=== PATIENT | male | born 1985 | race Two or more races ===

== ENCOUNTER 2017-03-29 14:17 | Emergency (ER) | payer SELFPAY ==
[2017-03-29] MEDS ORDERED: ACETAMINOPHEN 325 MG TABLET PO ONE (15:14)
--- NOTE | 2017-03-29 15:47 | RADIOLOGY REPORT (SQ) ---
EXAM DESCRIPTION: HAND RIGHT 3 VIEWS COMPLETED DATE/TIME: 03/29/2017 3:24 pm REASON FOR STUDY: Pain s/p injury COMPARISON: None. EXAM PARAMETERS: NUMBER OF VIEWS: Three views. TECHNIQUE: AP, lateral and oblique radiographic images acquired of the right hand. LIMITATIONS: None. FINDINGS: MINERALIZATION: Normal. BONES: Fracture of the 5th metacarpal distal to midshaft with about 30 of medial and dorsal angulati on JOINTS: No effusions. SOFT TISSUES: No soft tissue swelling. No foreign body. OTHER: No other significant finding. IMPRESSION: Fracture of the 5th metacarpal. TECHNICAL DOCUMENTATION: JOB ID: [id number] [employer]- All Rights Reserved
--- NOTE | 2017-03-29 16:19 | ER Document Report ---
HPI - HPI Patient complains to provider of: right hand pain and swelling Onset: Just prior to arrival - punched a table with his right hand Onset/Duration: Sudden Quality of pain: Achy, Throbbing Pain Level: 4 Associated Symptoms: Other - sensation intact, painful with ROM Exacerbated by: Movement Relieved by: Remaining still Similar symptoms previously: No Recently seen / treated by doctor: Yes - evaluated [facility] - REPRODUCTIVE Reproductive: DENIES: : - DERM Skin Color: Normal Past Medical History - General Information source: Patient - Social History Smoking Status: Unknown if Ever Smoked Family History: Reviewed & Not Pertinent Patient has suicidal ideation: No Patient has homicidal ideation: No Pulmonary Medical History: Reports: Hx Asthma Renal/ Medical History: Denies: Hx Peritoneal Dialysis - Immunizations Hx Diphtheria, Pertussis, Tetanus Vaccination: Yes Vertical Provider Document - CONSTITUTIONAL Agree With Documented VS: Yes Exam Limitations: No Limitations General Appearance: WD/WN, No Apparent Distress - INFECTION CONTROL TRAVEL OUTSIDE OF THE [place] IN LAST 30 DAYS: No - RESPIRATORY O2 Sat by Pulse Oximetry: 96 - MUSCULOSKELETAL/EXTREMETIES Musculoskeletal/Extremeties: MAEW, FROM, Tender - over shaft of 5th metacarpal, Edema, Eccymosis - over 5th metacarpal Notes: palpable deformity midshaft of 5th metacarpal - NEURO Level of Consciousness: Awake, Alert, Appropriate Motor/Sensory: No Motor Deficit, No Sensory Deficit - DERM Integumentary: Warm, Dry, No Rash. negative: Laceration Course - Re-evaluation Re-evalutation: 03/29/17 16:15 31-year-old male presents emergency department with right hand pain after punching a table. Right upper extremity of neurovascularly intact x-ray shows evidence of metacarpal midshaft fracture with dorsal angulation medially. Patient placed in ulnar gutter splint [facility]. - Vital Signs Vital signs: Temp Pulse Resp BP Pulse Ox 98.1 F 81 16 123/77 96 03/29/17 14:25 03/29/17 14:25 03/29/17 14:25 03/29/17 14:25 03/29/17 14:25 - Diagnostic Test Radiology reviewed: Image reviewed, Reports reviewed Discharge - Discharge Clinical Impression: Boxer's fracture Qualifiers: Encounter type: initial encounter Fracture type: closed Qualified Code(s): S62.309A - Unspecified fracture of unspecified metacarpal bone, initial encounter for closed fracture Condition: Good Disposition: HOME, SELF-CARE Instructions: Fractured Fifth Metacarpal ([facility]), Splint Precautions ([facility]) Additional Instructions: [facility] Please follow-up with an orthopedic surgeon for evaluation within the next 1-2 weeks. Prescriptions: Oxycodone HCl/Acetaminophen [Percocet 5-325 mg Tablet] 1 - 2 tab PO Q4H PRN #15 tablet PRN Reason: Referrals: CHUY MEZA MD [Primary Care Provider] - 03/31/17 VALENTINA HOPKINS DO [ACTIVE STAFF] - Follow up as needed
[2017-03-29 17:07] VITALS: BP 127/83
== END 2017-03-29 17:05 | disposition home or self-care (01) ==
LOC: ER 14:17
DX: S62.309A Unspecified fracture of unspecified metacarpal bone, initial encounter for closed fracture (principal); R22.31 Localized swelling, mass and lump, right upper limb; W22.09XA Striking against other stationary object, initial encounter
CPT/HCPCS: 99283

== ENCOUNTER 2018-07-09 05:23 | Observation (INO) | payer MEDICAID ==
[2018-07-09] MEDS ORDERED: DIPH/PERTUSS(ACELL)/TETANUS VAC/PF 0.5 ML SYR (>=10YO) IM ONE (07:09)
--- NOTE | 2018-07-09 07:15 | ER Document Report ---
ED General - General Chief Complaint: Laceration Stated Complaint: ANKLE LAC Time Seen by Provider: 07/09/18 06:52 TRAVEL OUTSIDE OF THE [place] IN LAST 30 DAYS: No - HPI Notes: Patient is a 32-year-old male that presents to the emergency department for chief complaint of right foot injury. Patient was brought in by EMS after kicking a glass door. He has been drinking alcohol tonight. He states he suffers from "intermittent explosive disorder" which causes him to have frequent outbursts. He states that he kicked the door out of anger. He is having pain in his right lower extremity. Pain is sharp and worse with movement. HPI is limited because of patient's current alcohol intoxication Past Medical History: Negative Past Surgical History: Negative Social History: Occasional tobacco, occasional marijuana, occasional alcohol Family History: Reviewed and noncontributory for presenting illness Allergies: Reviewed, see documented allergy list. REVIEW OF SYSTEMS: CONSTITUTIONAL : No fever No chills No diaphoresis No recent illness EENT: No vision changes No congestion No sore throat CARDIOVASCULAR: No chest pain No palpitations RESPIRATORY: No shortness of breath No cough No difficulty breathing GASTROINTESTINAL: No abdominal pain No nausea No vomiting No diarrhea GENITOURINARY: No dysuria No hematuria No difficulty urinating MUSCULOSKELETAL: No back pain No leg pain No arm pain SKIN: No rashes Right leg and foot laceration LYMPHATIC: No swollen, enlarged glands. NEUROLOGICAL: No lightheadedness No headache No weakness No paresthesias PSYCHIATRIC: No anxiety No depression PHYSICAL EXAMINATION: Vital signs reviewed, nursing noted reviewed. GENERAL: Well-appearing, well-nourished and in no acute distress. HEAD: Atraumatic, normocephalic. EYES: Eyes appear normal, extraocular movements intact, sclera anicteric, conjunctiva are normal. ENT: nares patent, oropharynx clear without exudates. Moist mucous membranes. NECK: Normal range of motion, supple without lymphadenopathy LUNGS: Breath sounds clear to auscultation bilaterally and equal. No wheezes rales or rhonchi. HEART: Regular rate and rhythm without murmurs ABDOMEN: Soft, nontender, normoactive bowel sounds. No rebound, guarding, or rigidity. No masses appreciated. EXTREMITIES: Nontender, good range of motion, no pitting or edema. NEUROLOGICAL: No focal neurological deficits. Moves all extremities spontaneously Motor and sensory grossly intact on exam. PSYCH: Normal mood, normal affect. SKIN: Warm, Dry, normal turgor. Plantar right foot linear laceration over the lateral arch, partial thickness, no active bleeding, no foreign material seen. Medial right lower extremity just proximal to the ankle has multiple macerated linear lacerations, no active bleeding. - Related Data Allergies/Adverse Reactions: No Known Allergies Allergy (Verified 03/29/17 14:25) Past Medical History - Social History Smoking Status: Former Smoker Chew tobacco use (# tins/day): No Frequency of alcohol use: Occasional Drug Abuse: None Family History: Reviewed & Not Pertinent Patient has suicidal ideation: No Patient has homicidal ideation: No Pulmonary Medical History: Reports: Hx Asthma Renal/ Medical History: Denies: Hx Peritoneal Dialysis - Immunizations Hx Diphtheria, Pertussis, Tetanus Vaccination: Yes Review of Systems - Review of Systems Notes: Dictated Physical Exam - Vital signs Vitals: Temp Pulse Resp BP Pulse Ox 98.3 F 83 16 111/80 96 07/09/18 05:28 07/09/18 05:28 07/09/18 05:28 07/09/18 05:28 07/09/18 05:28 - Notes Notes: Dictated Course - Re-evaluation Re-evalutation: 07/09/18 07:18 Vitals reviewed. Nursing notes reviewed. Patient's tetanus was updated. X- rays obtained to evaluate for foreign body. 07/09/18 09:03 Patient moved his right ankle and had what appeared to be possibly arterial bleeding that squirted a few feet from bedside. X-ray shows multiple glass fragments. Patient's care was discussed with Dr. Modi for surgical repair and wound exploration. Dr. Modi currently at bedside assessing the patient. Patient is now n.p.o. Foot X-Ray 07/09/18 07:09 IMPRESSION: NEGATIVE STUDY OF THE RIGHT FOOT. NO RADIOGRAPHIC EVIDENCE OF ACUTE INJURY. Tibia/Fibula X-Ray 07/09/18 07:09 IMPRESSION: DISTAL SOFT TISSUE INJURY WITH NUMEROUS RADIOPAQUE FOREIGN OBJECTS. NO BONY FINDINGS. 07/09/18 09:16 Patient will be admitted to Dr. Modi and taken to the operating room for surgical wound exploration and repair. - Vital Signs Vital signs: Temp Pulse Resp BP Pulse Ox 98.3 F 83 16 111/80 96 07/09/18 05:28 07/09/18 05:28 07/09/18 05:28 07/09/18 05:28 07/09/18 05:28 Discharge - Discharge Clinical Impression: Laceration of right foot Qualifiers: Encounter type: initial encounter Qualified Code(s): S91.311A - Laceration without foreign body, right foot, initial encounter Laceration of right lower leg Qualifiers: Encounter type: initial encounter Qualified Code(s): S81.811A - Laceration without foreign body, right lower leg, initial encounter Alcohol intoxication Qualifiers: Complication of substance-induced condition: uncomplicated Qualified Code(s): F10.920 - Alcohol use, unspecified with intoxication, uncomplicated Condition: Stable Disposition: ADMITTED OBSERVATION Admitting Provider: Surgicalist Unit Admitted: Surgical Floor Additional Instructions: Please return to the emergency department if you have any worsening, or concern of your symptoms. Please return to the emergency department if you develop chest pain, difficulty breathing, severe abdominal pain, or ongoing vomiting. Please follow-up with your primary care physician in 2-3 days and any other recommended physicians. If prescribed, take all medications as directed. If you have any questions or concerns do not hesitate to return the emergency department for evaluation. []
[2018-07-09] MEDS ORDERED: LIDOCAINE 1%/EPINEPHRINE INJ 20 ML VIAL INJ ONE (07:19)
--- NOTE | 2018-07-09 08:37 | RADIOLOGY REPORT (SQ) ---
EXAM DESCRIPTION: TIBIA FIBULA RIGHT COMPLETED DATE/TIME: 07/09/2018 7:56 am REASON FOR STUDY: foreign body COMPARISON: None. NUMBER OF VIEWS: Two views. TECHNIQUE: Two radiographic images acquired of the right tibia and fibula to include the knee and an kle in at least one projection. LIMITATIONS: None. FINDINGS: MINERALIZATION: Normal. BONES: No acute fracture or dislocation. No worrisome bone lesions. SOFT TISSUES: Distal soft tissue injury with numerous radiopaque foreign objects. OTHER: No other significant finding. IMPRESSION: DISTAL SOFT TISSUE INJURY WITH NUMEROUS RADIOPAQUE FOREIGN OBJECTS. NO BONY FINDINGS. TECHNICAL DOCUMENTATION: JOB ID: [id number] [employer]- All Rights Reserved Reading location - IP/workstation name: [email or web address]
--- NOTE | 2018-07-09 08:38 | RADIOLOGY REPORT (SQ) ---
EXAM DESCRIPTION: FOOT RIGHT COMPLETE COMPLETED DATE/TIME: 07/09/2018 7:56 am REASON FOR STUDY: foreign body COMPARISON: New NUMBER OF VIEWS: Three views. TECHNIQUE: AP, lateral and oblique radiographic images acquired of the right foot. LIMITATIONS: None. FINDINGS: MINERALIZATION: Normal. BONES: No acute fracture or dislocation. No worrisome bone lesions. JOINTS: No effusions. SOFT TISSUES: No soft tissue swelling. No foreign body. OTHER: Radiopaque foreign objects in the soft tissues of the distal calf, reported in the separate x- ray of the tibia and fibula. IMPRESSION: NEGATIVE STUDY OF THE RIGHT FOOT. NO RADIOGRAPHIC EVIDENCE OF ACUTE INJURY. TECHNICAL DOCUMENTATION: JOB ID: [id number] [employer]- All Rights Reserved Reading location - IP/workstation name: [email or web address]
[2018-07-09] MEDS ORDERED: NORMAL SALINE 1000 ML 1,000 ML IV ONE (09:00)
[2018-07-09] MEDS ORDERED: CEFAZOLIN 1 GM/D5W RTU 1 GM/50 ML RTUPB IV PRN (09:20)
[2018-07-09] MEDS ORDERED: DEXTROSE 5%-LACTATED RINGERS 1,000 ML IV PRN (09:20)
[2018-07-09] MEDS ORDERED: RINGERS SOLUTION,LACTATED 1,000 ML IV PRN (09:58)
--- NOTE | 2018-07-09 09:58 | PDOC H&P ---
History of Present Illness Admission Date/PCP: CHUY MEZA MD Patient complains of: Multiple lacerations right leg History of Present Illness: JONH DE LA CRUZ JR is a 32 year old male Br[facility] sustaining multiple lacerations to his right lower extremity, medial aspect after consciously kicking a glass door. The glass door shattered, patient had some bleeding at the scene, had a dressing applied, and was seen in the emergency department. Hemodynamically stable. He was obviously intoxicated but not combative. He had an x-ray of his right lower extremity which showed multiple retained foreign body consistent with glass fragments in his right leg. An initial attempt was made to perform foreign body removal at bedside in the emergency department but this was unsuccessful. Surgery was consulted and mentation were made to perform the service in the operating room. Past Medical History Past Medical History: Intermittent explosive disorder Medical History: None Pulmonary Medical History: Reports: Asthma Past Surgical History Past Surgical History: Reports: None Social History Information Source: Patient Smoking Status: Former Smoker Frequency of Alcohol Use: Heavy Hx Recreational Drug Use: No Family History Family History: Reviewed & Not Pertinent Parental Family History Reviewed: Yes Children Family History Reviewed: Yes Sibling(s) Family History Reviewed.: Yes Medication/Allergy Home Medications: Polymyxin B Sulf/Trimethoprim [Polytrim Eye Drops] 10 ml OP Q4 #1 bottle Oxycodone HCl/Acetaminophen [Percocet 5-325 mg Tablet] 1 - 2 tab PO Q4H PRN #15 tablet 03/29/17 Allergies/Adverse Reactions: No Known Allergies Allergy (Verified 03/29/17 14:25) Review of Systems Constitutional: PRESENT: as per HPI Eyes: ABSENT: visual disturbances Ears: ABSENT: hearing changes Respiratory: ABSENT: cough, hemoptysis Gastrointestinal: ABSENT: abdominal pain, constipation, diarrhea, hematemesis, hematochezia, nausea, vomiting Genitourinary: ABSENT: dysuria, hematuria Neurological: ABSENT: abnormal gait, abnormal speech, confusion, dizziness, focal weakness, syncope Hematologic/Lymphatic: ABSENT: easy bleeding, easy bruising Physical Exam Vital Signs: Temp Pulse Resp BP Pulse Ox 98.3 F 72 16 112/63 100 07/09/18 05:28 07/09/18 07:40 07/09/18 07:40 07/09/18 07:40 07/09/18 07:40 Intake & Output 07/08/18 07/09/18 07/10/18 06:59 06:59 06:59 Weight 64 kg General appearance: PRESENT: other - Reeks of alcohol Head exam: PRESENT: atraumatic Eye exam: PRESENT: EOMI Ear exam: PRESENT: normal external ear exam Neck exam: PRESENT: full ROM Respiratory exam: PRESENT: chest wall tenderness, clear to auscultation mamie Cardiovascular exam: PRESENT: RRR Pulses: PRESENT: normal carotid pulses, normal radial pulses, normal femoral pulses, normal dorsalis pedis pul GI/Abdominal exam: PRESENT: soft Rectal exam: PRESENT: deferred Musculoskeletal exam: PRESENT: other - Right lower extremity examined. Dressing removed. Multiple 4-5 small linear lacerations to the medial aspect of the right lower leg above the malleolus; eating no hematoma. Range of motion of the leg, ankle, with flexion, extension, inversion and eversion appears relatively preserved. Unable to reliably assess sensory function Neurological exam: PRESENT: awake, oriented to person, oriented to place, oriented to time, oriented to situation Psychiatric exam: PRESENT: flat affect Results Impressions: Foot X-Ray 07/09/18 07:09 IMPRESSION: NEGATIVE STUDY OF THE RIGHT FOOT. NO RADIOGRAPHIC EVIDENCE OF ACUTE INJURY. Tibia/Fibula X-Ray 07/09/18 07:09 IMPRESSION: DISTAL SOFT TISSUE INJURY WITH NUMEROUS RADIOPAQUE FOREIGN OBJECTS. NO BONY FINDINGS. Assessment & Plan - Diagnosis (1) Foreign body of right lower leg Is this a current diagnosis for this admission?: Yes Plan: Impression: Self-inflicted traumatic laceration to the right lower extremity multiple small glass foreign body in the soft tissue. Recommendations: 1. Keep n.p.o., IV fluids, tetanus booster 2. Take patient to the operating room for right lower extremity washout, foreign body removal and wound closure. (2) Alcohol intoxication Qualifiers: Complication of substance-induced condition: uncomplicated Qualified Code(s ): F10.920 - Alcohol use, unspecified with intoxication, uncomplicated Is this a current diagnosis for this admission?: Yes (3) Laceration of right foot Qualifiers: Encounter type: initial encounter Qualified Code(s): S91.311A - Laceration without foreign body, right foot, initial encounter Is this a current diagnosis for this admission?: Yes - Time Time Spent: 30 to 50 Minutes Critical Time spent with patient: 15-24 minutes Medications reviewed and adjusted accordingly: Yes Anticipated discharge: Home - Inpatient Certification Based on my medical assessment, after consideration of the patient's comorbidities, presenting symptoms, or acuity I expect that the services needed warrant INPATIENT care.: Yes I certify that my determination is in accordance with my understanding of Medicare's requirements for reasonable and necessary INPATIENT services [42 CFR 412.3e].: Yes Medical Necessity: Need For IV Fluids, Need for Pain Control, Need for IV Antibiotics, Need for Surgery
[2018-07-09 10:15] LABS: ABSOLUTE BASOPHILS # (AUTO) 0.1 10^3/uL (0.0-0.2); ABSOLUTE EOSINOPHILS # (AUTO) 0.2 10^3/uL (0.0-0.6); ABSOLUTE LYMPHOCYTES (AUTO) 1.9 10^3/uL (0.5-4.7); ABSOLUTE MONOCYTES (AUTO) 0.7 10^3/uL (0.1-1.4); ABSOLUTE NEUT (AUTO) 6.6 10^3/uL (1.7-8.2); BASOPHILS % (AUTO) 0.8 % (0-2); EOSINOPHILS % (AUTO) 1.8 % (0-6); HEMATOCRIT 49.1 % (37.9-51.0); HEMOGLOBIN 17.3 g/dL (13.5-17.0); LYMPHOCYTES % (AUTO) 20.4 % (13-45); MEAN CORPUSCULAR HEMOGLOBIN 31.5 pg (27.0-33.4); MEAN CORPUSCULAR HGB CONC 35.1 g/dL (32.0-36.0); MEAN CORPUSCULAR VOLUME 90 fl (80-97); MONOCYTES % (AUTO) 7.1 % (3-13); PLATELET COUNT 367 10^3/uL (150-450); RED BLOOD COUNT 5.48 10^6/uL (4.35-5.55); RED CELL DISTRIBUTION WIDTH 13.1 % (11.5-14.0); SEGMENTED NEUTROPHILS % (AUTO) 69.9 % (42-78); TOTAL CELLS COUNTED % (AUTO) 100 %; WHITE BLOOD COUNT 9.4 10^3/uL (4.0-10.5)
[2018-07-09] MEDS ORDERED: HYDROMORPHONE HCL INJ/PF 2 MG/ML AMPULE ONE (10:20)
[2018-07-09] MEDS ORDERED: PROPOFOL INJ 200 MG/20 ML VIAL IV ONE (10:21)
[2018-07-09] MEDS ORDERED: FENTANYL CITRATE INJ/PF 100 MCG/2 ML AMPUL ONE (10:21)
[2018-07-09] MEDS ORDERED: ONDANSETRON HCL INJ/PF 4 MG/2 ML SDV ONE (10:21)
[2018-07-09] MEDS ORDERED: MIDAZOLAM 2 MG/2 ML INJ ONE (10:21)
[2018-07-09] MEDS ORDERED: BUPIVACAINE HCL 0.5 % INJ/PF 30 ML SDV ONE (10:31)
[2018-07-09] MEDS ORDERED: LIDOCAINE 0.5% INJ-PF (5 MG/ML) 50 ML SDV ONE (10:31)
[2018-07-09 10:32] LABS: ANION GAP 12 (5-19); BLOOD UREA NITROGEN 8 mg/dL (7-20); CALCIUM 10.1 mg/dL (8.4-10.2); CARBON DIOXIDE 26 mmol/L (22-30); CHLORIDE 104 mmol/L (98-107); GLUCOSE 86 mg/dL (75-110); POTASSIUM 4.5 mmol/L (3.6-5.0); SODIUM 142.2 mmol/L (137-145)
[2018-07-09] MEDS ORDERED: METOCLOPRAMIDE HCL INJ/PF 10 MG/2 ML SDV ONE (10:36)
[2018-07-09] MEDS ORDERED: IPRATROPIUM/ALBUTEROL 0.5-2.5 MG/3 ML AMPUL NEB ONE (10:36)
[2018-07-09] MEDS ORDERED: FAMOTIDINE INJ/PF 20 MG/2 ML SDV IV ONE (10:37)
--- NOTE | 2018-07-09 11:52 | Operative Report ---
Operative Report DATE OF SURGERY: 07/09/18 PREOPERATIVE DIAGNOSIS: 1. Dramatic lacerations to the right lower extremity with foreign body consistent with glass. 2. Intermittent explosive disorder ( F63.8, ICD-10) POSTOPERATIVE DIAGNOSIS: Same with traumatic laceration of the right greater saphenous vein, right greater saphenous nerve. OPERATION: 1. Right lower extremity wound exploration, control of hemorrhage from right greater saphenous vein and associated artery. 2. Movable for multiple foreign bodies consistent with glass fragments. 3. Primary closure of multiple lacerations right lower extremity. 4. Interpretation of intraoperative fluoroscopy SURGEON: JANNET KAHN ANESTHESIA: GA TISSUE REMOVED OR ALTERED: Foreign body right lower extremity; fragments of nonviable skin and subcutaneous tissue COMPLICATIONS: None ESTIMATED BLOOD LOSS: Minimal INTRAOPERATIVE FINDINGS: See below PROCEDURE: The patient was taken to the preop holding her to the main operating room where general anesthesia was induced. Right leg was exposed, elevated on a pediatric pillow, and right leg prepped and draped in sterile fashion after clipping hair around the traumatic laceration to the right lower extremity above the right medial malleolus. Of note there was now active bleeding from the. Her most laceration requiring direct pressure for control Immediate plan and timeout discussed. We called our attention immediately to the superiormost laceration which is approximately 3-1/2 cm in length on a diagonal. Several glass fragments immediately fell out of this wound. I immediately notified the transected right greater saphenous vein, small associated artery, and the completely transected right greater saphenous nerve. I extended the laceration longitudinally divided some devitalized tissue along the cephalad skin flap, and gain control of the proximal dissected and of the respective vein and artery as well as the transected sensory greater saphenous nerve. All 4 components were now ligated with 3-0 Vicryl suture. The rationale for performing this maneuver was the insignificant role that these arteries, vein and nerve play in the viability foot. The nerve is strictly sensory. Of note, the patient had a bounding posterior tibial and a bounding dorsalis tibial pulse on examination preop and during the operation. We brought in fluoroscopy, and identified multiple retained glass fragments approximately 5. We used a combination of hemostat, and saline irrigation to expel the remaining fragments. After debridement of the retained foreign bodies , a conclusion image of the right lower extremity both in the AP and lateral projection showed no evidence of retention of retained foreign body. We felt that debridement was complete I cleaned up all 3 incisions. The superiormost at 3-1/2 cm, the inferior incision which was a skive type injury at 2 cm and inferior lateral laceration approximately 2 cm. Nonviable skin edges were sharply debrided with a #10 blade. All 3 lacerations were closed with running vertical mattress or interrupted vertical mattress sutures using 4-0 Ethilon suture. Of note the 2 cm inferior laceration was only approximated due to the loss of dermis centrally. Will be permitted to granulate in by secondary intention At this point felt the operation was complete. Sponge and needle counts are correct. Wound dressed with Xeroform, 4 x 4's, Kerlix dressing. Patient procedure well, extubated, taken recovery in stable condition.
[2018-07-09] MEDS ORDERED: MEPERIDINE HCL/PF INJ 25 MG/1 ML DISP.SYRIN IV PRN (12:26)
[2018-07-09] MEDS ORDERED: ONDANSETRON HCL INJ/PF 4 MG/2 ML SDV IV PRN (12:26)
[2018-07-09] MEDS ORDERED: DIPHENHYDRAMINE HCL 50 MG/ML VIAL IV PRN (12:26)
[2018-07-09] MEDS ORDERED: FENTANYL CITRATE INJ/PF 100 MCG/2 ML AMPUL IV PRN ×3 (12:26)
[2018-07-09] MEDS: ACETAMINOPHEN WITH CODEINE #3 TABLET PO PRN ×2 (16:14→20:27)
[2018-07-09 19:21] VITALS: BP 109/57
--- NOTE | 2018-07-09 20:56 | RADIOLOGY REPORT (SQ) ---
EXAM DESCRIPTION: NO CHG FLUORO; TIBIA FIBULA RIGHT COMPLETED DATE/TIME: 07/09/2018 11:52 am REASON FOR STUDY: FOREIGN BODY REMOVAL OF RIGHT TIB/FIB COMPARISON: 07/09/2018. FLUOROSCOPY TIME: 0.1 minutes. 5 images saved to PACS. TECHNIQUE: Intra-operative images acquired during surgical procedure to evaluate progress. NUMBER OF IMAGES: 5 images. LIMITATIONS: None. FINDINGS: Images of the lower leg acquired during foreign body removal. IMPRESSION: IMAGE(S) OBTAINED DURING PROCEDURE. COMMENT: Quality ID [id number]: Final reports for procedures using fluoroscopy that document radiation exp osure indices, or exposure time and number of fluorographic images (if radiation exposure indices are not available) Please consult full operative report of the attending physician for description of the procedure. TECHNICAL DOCUMENTATION: JOB ID: [id number] [employer]- All Rights Reserved Reading location - IP/workstation name: [email or web address]
--- NOTE | 2018-07-09 20:56 | RADIOLOGY REPORT (SQ) ---
EXAM DESCRIPTION: NO CHG FLUORO; TIBIA FIBULA RIGHT COMPLETED DATE/TIME: 07/09/2018 11:52 am REASON FOR STUDY: FOREIGN BODY REMOVAL OF RIGHT TIB/FIB COMPARISON: 07/09/2018. FLUOROSCOPY TIME: 0.1 minutes. 5 images saved to PACS. TECHNIQUE: Intra-operative images acquired during surgical procedure to evaluate progress. NUMBER OF IMAGES: 5 images. LIMITATIONS: None. FINDINGS: Images of the lower leg acquired during foreign body removal. IMPRESSION: IMAGE(S) OBTAINED DURING PROCEDURE. COMMENT: Quality ID [id number]: Final reports for procedures using fluoroscopy that document radiation exp osure indices, or exposure time and number of fluorographic images (if radiation exposure indices are not available) Please consult full operative report of the attending physician for description of the procedure. TECHNICAL DOCUMENTATION: JOB ID: [id number] [employer]- All Rights Reserved Reading location - IP/workstation name: [email or web address]
--- NOTE | 2018-07-14 08:38 | DISCHARGE SUMMARY E ---
Discharge Summary NAME: JONH DE LA CRUZ : 1985 AGE: 32Y ADMITTED: 07/09/2018 DISCHARGED: 07/09/2018 SUMMARY OF HOSPITALIZATION: The patient is a 32-year-old male who kicked a glass door, which shattered, sustaining lacerations to his right leg. He was evaluated in the emergency department and found to require operative exploration, control of bleeding and debridement. The patient was taken to the operating room by Dr. Modi where he underwent right leg wound debridement, control of hemorrhage, removal of multiple foreign bodies, and closure of leg lacerations. Following the procedure, the patient recovered and was discharged home. FINAL DIAGNOSIS: Multiple lacerations status post traumatic injury to right lower extremity with repair and removal of foreign body by Dr. Modi. DISPOSITION: The patient will be discharged home to the care of his family. Follow up with [facility] in approximately 1 week, refrain from any strenuous physical activity. DICTATING PHYSICIAN: JANNET MODI M.D. [id number] PHY#: [id number] ID: [id number] JOB#: [id number] ACCT: [id number] cc:JANNET MODI M.D. >
== END 2018-07-09 20:50 | disposition home or self-care (01) ==
LOC: ER 05:23 → EH 09:53 → 5 14:37
PROVIDERS: ADMIT Surgery; ATTEND Surgery
PROC: 3E0234Z Introduction of Serum, Toxoid and Vaccine into Muscle, Percutaneous Approach (ICD-10-PCS; 2018-07-09)
PROC: 0JCN0ZZ Extirpation of Matter from Right Lower Leg Subcutaneous Tissue and Fascia, Open Approach (ICD-10-PCS; principal; 2018-07-09 11:30)
DX: S81.821A Laceration with foreign body, right lower leg, initial encounter (principal); S91.321A Laceration with foreign body, right foot, initial encounter; S85.31 Laceration of greater saphenous vein at lower leg level; S84.801A Injury of other nerves at lower leg level, right leg, initial encounter; X78.0XXA Intentional self-harm by sharp glass, initial encounter; F10.920 Alcohol use, unspecified with intoxication, uncomplicated; F63.81 Intermittent explosive disorder; Z87.891 Personal history of nicotine dependence; Z23 Encounter for immunization
CPT/HCPCS: 99285; 90471; 86900; 86901; 36415; 86850; 85025; 80048; 73630; 73590; 90715; 20103; J2250; J3490 ×2; J0690; J2765; J1170; J2405; J7120; J2704; S0028; J7620; 01470; G0378; J3010